=== PATIENT | male | born 1960 | race Caucasian/White ===

== ENCOUNTER 2019-06-24 18:35 | Emergency (ER) | payer MEDICARE ==
[~2019-06-24] VITALS: Ht 180.3 cm; Wt 68.2 kg
[2019-06-24 19:03] VITALS: Ht 180.3 cm; Wt 68.2 kg
[2019-06-24] MEDS ORDERED: SLEEPING PILL (19:05)
[2019-06-24] MEDS ORDERED: NERVE PILL (19:05)
[2019-06-24] MEDS ORDERED: PAIN PILL (19:05)
[2019-06-24] MEDS ORDERED: BLOOD PRESSURE (19:05)
[2019-06-24 19:22] LABS: BASOPHILS 0.1 % (0-2); EOSINOPHILS 3.4 % (0-7); HEMATOCRIT 43.6 % (42.0-54.0); HEMOGLOBIN 15.2 g/dL (13.5-17.5); IMMATURE GRANULOCYTES 0.2 % (0-5); LYMPHOCYTES 18.9 % (15-50); MCH 30.3 pg (26.0-34.0); MCHC 34.9 g/dL (31.0-37.0); MCV 86.9 fL (80.0-100.0); MEAN PLATELET VOLUME 9.8 fL (7.4-10.4); NEUTROPHILS 72.4 % (40-80); PLATELET COUNT 229 10x3/uL (130-400); RBC 5.02 10x6/uL (4.20-6.10); RDW 14.2 % (11.5-14.5)
[2019-06-24 19:27] LABS: APPEARANCE CLEAR (CLEAR); BILIRUBIN NEGATIVE (NEGATIVE); COLOR YELLOW (YELLOW); GLUCOSE NEGATIVE (NEGATIVE); KETONE NEGATIVE (NEGATIVE); NITRITE NEGATIVE (NEGATIVE); PROTEIN NEGATIVE (NEGATIVE); UROBILINOGEN NORMAL (NORMAL)
[2019-06-24 19:32] LABS: ANION GAP 13.1 mmol/L (8-16); CALCIUM 9.3 mg/dL (8.5-10.1); CARBON DIOXIDE 26.6 mmol/L (21.0-32.0); CREATININE - SERUM 1.2 mg/dL (0.6-1.3); POTASSIUM - SERUM 3.7 mmol/L (3.5-5.1)
[2019-06-24 19:40] LABS: ALBUMIN 4.1 g/dL (3.4-5.0); BILIRUBIN - TOTAL 1.17 mg/dL (0.2-1.3)
[2019-06-24] MEDS ORDERED: ZOFRAN8 MG PO (20:40)
[2019-06-24 21:06] VITALS: BP 125/88
== END 2019-06-24 21:06 | disposition home or self-care (01) ==
LOC: D.ER 18:35
PROVIDERS: Family Medicine
DX: K52.9 Noninfective gastroenteritis and colitis, unspecified (principal); I10 Essential (primary) hypertension; E78.5 Hyperlipidemia, unspecified; F17.210 Nicotine dependence, cigarettes, uncomplicated